=== PATIENT | male | born 1960 | race Caucasian/White ===

== ENCOUNTER 2018-10-01 07:13 | Day surgery (SDC) | payer OTHER ==
[2015-11-02 07:14] VITALS: BMI 41.9
[2018-10-01 07:54] VITALS: PULSE 67; RESP 19; TEMP 978; O2SAT 99
[2018-10-01] MEDS ORDERED: Etomidate 20 mg/10ml Inj IV ONE (09:51)
[2018-10-01] MEDS ORDERED: Propofol 10 mg/ml Inj (20 ML) ONE (09:51)
--- NOTE | 2018-10-01 09:51 | CP.SDSHP ---
Same Day Surgery H & P - History Proposed Procedure: COLONSCOPY Pre-Op Diagnosis: SEE NOTES - Previous Medical/Surgical History Endocrine/Metabolic: Diabetes Neuro: Other Misc: Other - Allergies Allergies: Allergies No Known Allergies Allergy (Verified 09/30/18 12:29) - Physical Exam General Appearance: N Vital Signs: Vital Signs 10/01/18 07:40 Temperature 978.0 F H Pulse Rate 67 Respiratory 19 Rate Blood Pressure 140/83 O2 Sat by Pulse 99 Oximetry Mental Status: Alert & Oriented x3 Neuro: WNL Heart: WNL Lungs: WNL GI: Other - {Optional Preform as Required} Breast: WNL Abdomen: Other Rectal: WNL Integument: WNL : WNL Ortho: Other ENT: WNL - Impression Pt. Evaluated Today:Candidate for Anesthesia & Procedure: Yes - Date & Time Time: 09:50 Short Stay Discharge - Short Stay Discharge Admitting Diagnosis/Reason for Visit: CHANGE IN BOWEL HABITS Disposition: HOME/ ROUTINE
[2018-10-01] MEDS ORDERED: Belladonna-Phenobarbital PO ONE (10:45)
[2018-10-01 11:22] VITALS: BP 118/69
== END 2018-10-01 11:14 | disposition home or self-care (01) ==
LOC: C.ENDO 07:13
PROVIDERS: ATTEND Specialist
DX: Z12.11 Encounter for screening for malignant neoplasm of colon (principal); K57.30 Diverticulosis of large intestine without perforation or abscess without bleeding; E11.9 Type 2 diabetes mellitus without complications
CPT/HCPCS: 45380; 82948; 88305; J2704; J3010

== ENCOUNTER 2018-10-30 18:32 | Outpatient (CLI) | payer OTHER | END 2018-10-30 18:33 | disposition home or self-care (01) | LOC: C.SLEEP 18:33 | DX: G47.33 Obstructive sleep apnea (adult) (pediatric) (principal) ==

== ENCOUNTER 2018-12-04 16:09 | Outpatient (CLI) | payer OTHER | END 2018-12-04 16:10 | disposition home or self-care (01) | LOC: C.RADH 16:09 ==